=== PATIENT | male | born 1965 | race Two or more races ===

== ENCOUNTER → 2016-09-01 | Outpatient (CLI) | payer MEDICARE, SELFPAY ==
[2016-09-01 10:58] LABS: ALT 35 U/L (21-72); AST 23 U/L (17-59); Alkaline Phosphatase 107 U/L (38-126); Anion Gap 11 mmol/L; Blood Urea Nitrogen 11 mg/dL (9-20); Calcium 9.7 mg/dL (8.4-10.2); Carbon Dioxide 29 mmol/L (22-30); Chloride 100 mmol/L (98-107); Cholesterol 154 mg/dL (<200); Glucose 285 mg/dL (74-99); HDL Cholesterol 54 mg/dL (40-60); Non-African American GFR(MDRD) >60 (>60 ml/min/1.73 sqM); Potassium 4.6 mmol/L (3.5-5.1); Sodium 140 mmol/L (137-145); Total Bilirubin 0.6 mg/dL (0.2-1.3); Total Protein 8.1 g/dL (6.3-8.2); Triglycerides 136 mg/dL (<150)
== END ==
LOC: LABWHC1 09:45
PROVIDERS: ATTEND Internal Medicine Endocrinology, Diabetes & Metabolism
DX: E11.65 Type 2 diabetes mellitus with hyperglycemia (principal)
CPT/HCPCS: 36415; 80053; 80061; 82043

== ENCOUNTER → 2018-04-25 | Outpatient (CLI) | payer MEDICARE ==
--- NOTE | 2018-04-25 07:53 | MR ---
EXAMINATION TYPE: MR knee LT wo con DATE OF EXAM: 04/25/2018 COMPARISON: Bilateral knee x-ray February 24, 2014 HISTORY: S80.02XA / M25.562 - Contusion / Pain per order. Inner pain and swelling for one month after fall injury per patient. TECHNIQUE: Multiplanar, multisequence images of the knee is performed without IV contrast. FINDINGS: MEDIAL MENISCUS: Anterior and posterior horns are intact without tear. LATERAL MENISCUS: Anterior horn has globular increased signal extending to inferior articular surface , there is irregularity along anterior margin. Posterior horn is markedly truncated with abnormal sig nal, large cleft towards central body is noted. Marked lateral extrusion is seen on coronal images CRUCIATE LIGAMENTS: The posterior cruciate ligament is intact . Anterior cruciate ligament remains in tact with increased signal and thickening on sagittal image 16. COLLATERAL LIGAMENTS: The medial collateral ligament and lateral collateral ligament complex are inta ct and unremarkable. EXTENSOR MECHANISM: Visualized quadriceps and patellar tendons are intact. EFFUSION: There is small to moderate-sized suprapatellar joint effusion. POPLITEAL CYST: No popliteal/john cyst. TRICOMPARTMENT SPACES: Moderate tricompartment joint space loss is present with mild to moderate spur ring. CARTILAGE: Chondromalacia patella is seen with thinning of articular cartilage along posterior patell ar pole. There is thinning of articular cartilage medial and lateral tibiofemoral compartments. BONE MARROW SIGNAL: There is subchondral cystic change lateral tibiofemoral compartment coronal image 22. There is additional subchondral cystic change along the posterior patellar pole OTHER: No additional significant abnormality is appreciated. IMPRESSION: 1. Complex full-thickness meniscal tear involving anterior and worse involving the posterior posterio r horn of lateral meniscus. 2. Moderate to advanced tricompartment degenerative changes as detailed above. 3. Small to moderate size suprapatellar joint effusion. 4. Myxoid degeneration ACL.
== END | disposition home or self-care (01) ==
LOC: RADMRIMAIN 07:01
PROVIDERS: ATTEND Family Medicine
DX: S83.272A Complex tear of lateral meniscus, current injury, left knee, initial encounter (principal); M17.12 Unilateral primary osteoarthritis, left knee; M89.8X6 Other specified disorders of bone, lower leg

== ENCOUNTER → 2018-11-22 | Outpatient (CLI) | payer MEDICARE ==
[2018-11-22 11:13] LABS: HCT 39.9 % (39.0-53.0); HGB 13.4 gm/dL (13.0-17.5); MCH 29.7 pg (25.0-35.0); MCHC 33.7 g/dL (31.0-37.0); MCV 88.1 fL (80.0-100.0); Mean Platelet Volume 7.3; Platelet Count 236 k/uL (150-450); RBC 4.52 m/uL (4.30-5.90); RDW 13.9 % (11.5-15.5); WBC 5.8 k/uL (3.8-10.6)
[2018-11-22 11:28] LABS: INR 0.9 (<1.2); Prothrombin Time 9.7 sec (9.0-12.0)
[2018-11-22 11:29] LABS: ALT 28 U/L (21-72); AST 22 U/L (17-59); African American GFR (CKD) >90 (>60 ml/min/1.73 sqM); Albumin 4.4 g/dL (3.5-5.0); Alkaline Phosphatase 82 U/L (38-126); Anion Gap 11 mmol/L; Blood Urea Nitrogen 14 mg/dL (9-20); Calcium 9.7 mg/dL (8.4-10.2); Carbon Dioxide 27 mmol/L (22-30); Chloride 103 mmol/L (98-107); Cholesterol 166 mg/dL (<200); Glucose 188 mg/dL (74-99); HDL Cholesterol 63 mg/dL (40-60); LDL Cholesterol,Calculated 81 mg/dL (0-99); Magnesium 1.5 mg/dL (1.6-2.3); Phosphorus 4.2 mg/dL (2.5-4.5); Potassium 4.4 mmol/L (3.5-5.1); Sodium 141 mmol/L (137-145); Total Bilirubin 0.4 mg/dL (0.2-1.3); Total Protein 7.7 g/dL (6.3-8.2); Triglycerides 109 mg/dL (<150)
--- NOTE | 2018-11-22 12:31 | US ---
EXAMINATION TYPE: US gallbladder DATE OF EXAM: 11/22/2018 COMPARISON: Renal US CLINICAL HISTORY: K80.20 Gallstones. Patient c/o epigastric pain after meals, acid reflux, and para u mbilical pain since yesterday after heavy lifting; gastric bypass surgery 2017, umbilical hernia repa ir with mesh 2002 or 2003; diabetic, HT 6'1", WT 320lbs EXAM MEASUREMENTS: Liver Length: 14.5 cm Gallbladder Wall: 0.2 cm CBD: 0.3 cm Right Kidney: 13.87 x 6.5 x 6.4 cm US exam is technically limited by large body habitus. Pancreas: Unremarkable Liver: There is increased echogenicity of the hepatic parenchyma with diminished visualization of th e portal triads most commonly relating to hepatic steatosis and limiting evaluation for underlying he patic masses. Gallbladder: wnl Evidence for sonographic Wood's sign: no CBD: wnl Right Kidney: No hydronephrosis or masses seen, lobular mid cortex is noted Mid Abdomen at pain/mesh area: bowel is noted deep to the mesh from the prior hernia repair with sub cutaneous scarring noted. IMPRESSION: 1. Mesh appears grossly intact with scar tissue superficial to this and bowel deep to this. If there is palpable abnormality or persistent pain CT would be recommended with Valsalva. 2. Findings most commonly related to hepatic steatosis, correlate with liver function tests.
[2018-11-22 16:03] LABS: Parathyroid Hormone Intact 29.8 pg/mL (14.0-72.0)
[2018-11-22 17:05] LABS: Folate, Serum 5.7 ng/mL; Vitamin D 25 Hydroxy 21.2 ng/mL (30.0-100.0)
[2018-11-22 17:08] LABS: Iron Saturation 28.8 (15.00-50.00)
[2018-11-22 17:29] LABS: Hemoglobin A1C 8.4 % (4.0-6.0)
[2018-11-23 13:45] LABS: Vit B1(Thiamine) 60 ug/L (38-122)
[2018-11-23 15:20] LABS: Zinc, Serum 70 ug/dL (60-130)
== END | disposition home or self-care (01) ==
LOC: RADUSWWP 10:12
PROVIDERS: ATTEND Surgery Plastic and Reconstructive Surgery
DX: K80.20 Calculus of gallbladder without cholecystitis without obstruction (principal); E21.1 Secondary hyperparathyroidism, not elsewhere classified; D50.8 Other iron deficiency anemias; K90.89 Other intestinal malabsorption; E44.0 Moderate protein-calorie malnutrition; E55.9 Vitamin D deficiency, unspecified; K74.1 Hepatic sclerosis; N19 Unspecified kidney failure; K50.90 Crohn's disease, unspecified, without complications
CPT/HCPCS: 76705; 80053; 80061; 82306; 82525; 82607; 82728; 82746; 83036; 83540; 83550; 83735; 83970; 84100; 84134; 84255; 84425; 84443; 84590; 84630; 85027; 85610; 85730

== ENCOUNTER → 2018-11-27 | Outpatient (CLI) | payer MEDICARE ==
--- NOTE | 2018-11-27 11:20 | CT ---
EXAMINATION TYPE: CT abdomen w con DATE OF EXAM: 11/27/2018 COMPARISON: Gallbladder ultrasound 5 days ago. HISTORY: Umbilical pain, prior umbilical hernia repair CT DLP: 3804.7 mGycm, Automated Exposure Control for Dose Reduction was Utilized. CONTRAST: CT scan of the abdomen is performed with oral and with IV Contrast, patient injected with 100 mL of I sovue 300. FINDINGS: LUNG BASES: No significant abnormality is appreciated. LIVER/GB: Liver is diffusely low dense consistent with mild diffuse fatty infiltration. PANCREAS: No significant abnormality is seen. SPLEEN: No significant abnormality is seen. ADRENALS: No significant abnormality is seen. KIDNEYS: There is symmetric cortical medullary uptake and excretion from both kidneys without concern ing renal mass or hydronephrosis seen bilaterally. There are suspected two 2 mm upper pole right jonny l calculi or abnormal image 63 and single 3 mm calculus lower pole right kidney coronal image 50 BOWEL: Surgical sutures from gastric sleeve are seen. Oral contrast has not reached distal ileum. Nor mal-appearing appendix is seen from the cecum posteriorly. No suspicious small large bowel dilatation . LYMPH NODES: No greater than 1cm abdominal lymph nodes are appreciated. OSSEOUS STRUCTURES: Moderate multilevel spurring. OTHER: Anterior abdominal wall shows mild skin thickening and fat stranding bilaterally mid to lower abdominal levels. There is no recurrent hernia evident. IMPRESSION: No suspicious ventral or umbilical hernia.
== END | disposition home or self-care (01) ==
LOC: RADCTMAIN 09:32
PROVIDERS: ATTEND Family Medicine
DX: R10.9 Unspecified abdominal pain (principal)
CPT/HCPCS: 74160; Q9967

== ENCOUNTER 2018-12-12 05:57 | Day surgery (SDC) | payer MEDICARE ==
[2018-12-07 12:24] VITALS: BMI 44.9
[~2018-12-12 05:57] MED LIST: LACTATED RINGERS 1,000 ML IV SCH; LIDOCAINE 1% 20 ML VIAL (10MG/ML) FOR IV START INTRADERMA PRN
[2018-12-12] MEDS ORDERED: LACTATED RINGERS 1,000 ML IV ONE (06:37)
[2018-12-12 06:47] VITALS: TEMP 98.4
[2018-12-12 06:51] LABS: Glucose,Whole Blood 111 mg/dL (75-99)
[2018-12-12] MEDS ORDERED: LIDOCAINE 1% INJ 10MG/ML (20 ML MDV) ONE (07:04)
[2018-12-12] MEDS ORDERED: PROPOFOL 10 MG/ML 20 ML VIAL IV ONE (07:04)
--- NOTE | 2018-12-12 07:11 | P.GSHP ---
History of Present Illness H&P Date: 12/12/18 CHIEF COMPLAINT: GERD HISTORY OF PRESENT ILLNESS: The patient is a 53-year-old male who presents reports gastroesophageal reflux disease. Upper endoscopy was offered for further evaluation and management. PAST MEDICAL HISTORY: Please see list. PAST SURGICAL HISTORY: Please see list. MEDICATIONS: Please see list. ALLERGIES: Please see list. SOCIAL HISTORY: No illicit drug use FAMILY HISTORY: No reports of Crohn disease or ulcerative colitis. REVIEW OF ORGAN SYSTEMS: CONSTITUTIONAL: No reports of fevers or chills. GI: Denies any blood in stools or constipation. PHYSICAL EXAM: VITAL SIGNS: Stable GENERAL: Well-developed and pleasant in no acute distress. HEENT: No scleral icterus. Extraocular movements grossly intact. Moist buccal mucosa. NECK: Supple without lymphadenopathy. CHEST: Unlabored respirations. Equal bilateral excursions. CARDIOVASCULAR: Regular rate and rhythm. Distal 2+ pulses. ABDOMEN: Soft, nondistended. MUSCULOSKELETAL: No clubbing, cyanosis, or edema. ASSESSMENT: 1. Gastroesophageal reflux disease PLAN: 1. Recommend proceeding with an upper endoscopy Past Medical History Past Medical History: Diabetes Mellitus, GERD/Reflux, Hypertension, Musculoskeletal Disorder, Osteoarthritis (OA), Sleep Apnea/CPAP/BIPAP Additional Past Medical History / Comment(s): neuropathy legs, hands feet & back., herniated lumbar discs, history of multiple bone fractures, Hx of sleep apnea- resolved with wt loss, , swelling lower legs, RLS, uses cane. Arthritis knees. History of Any Multi-Drug Resistant Organisms: None Reported Past Surgical History: Bariatric Surgery, Hernia Repair, Orthopedic Surgery Additional Past Surgical History / Comment(s): umbilical hernia repair w/mesh, right carpal tunnel repair, arthroscopy R knee, sleeve gastrectomy 11/30/15 Past Anesthesia/Blood Transfusion Reactions: No Reported Reaction Past Psychological History: No Psychological Hx Reported Smoking Status: Never smoker Past Alcohol Use History: Occasional Past Drug Use History: None Reported - Past Family History Father Additional Family Medical History / Comment(s): Heart problems Mother Family Medical History: Diabetes Mellitus Additional Family Medical History / Comment(s): from foot infection Medications and Allergies Home Medications Medication Instructions Recorded Confirmed Type Insulin NPH [humuLIN N] 50 units SQ BID-W/MEALS 08/13/15 12/12/18 History Insulin Regular [humuLIN R] 1 dose SQ ACHS PRN 08/28/15 12/12/18 History Losartan Potassium 25 mg PO DAILY 04/21/16 12/12/18 History HYDROcodone/APAP 10-325MG [[place] 1 tab PO DIRECTED PRN 12/07/18 12/12/18 History 10-325] Metformin (Unknown Dose) 2,000 tab PO DAILY 12/07/18 12/12/18 History Testosterone Booster 1 dose PO DAILY 12/07/18 History Allergies Allergy/AdvReac Type Severity Reaction Status Date / Time hydrocodone bitartrate AdvReac Rash/Hives Verified 12/12/18 06:49 [From Lortab] Surgical - Exam Vital Signs Pulse Resp BP Pulse Ox 93 14 143/78 94 L 12/12/18 06:44 12/12/18 06:44 12/12/18 06:44 12/12/18 06:44 Results - Labs Abnormal Lab Results - Last 24 Hours (Table) 12/12/18 Range/Units 06:47 POC Glucose (mg/dL) 111 H (75-99) mg/dL
--- NOTE | 2018-12-12 07:22 | P.PCN ---
Date of Procedure: 12/12/18 Description of Procedure: PREOPERATIVE DIAGNOSIS: Gastroesophageal reflux disease. Morbid obesity. POSTOPERATIVE DIAGNOSIS: Morbid obesity. Erosive esophagitis with ulceration Gastroesophageal reflux disease. Diaphragmatic hiatal hernia History of sleeve gastrectomy OPERATION: Esophagogastroduodenoscopy with biopsies along antrum and distal esophagus SURGEON: Magalis Holguin MD ANESTHESIA: MAC. INDICATIONS: The patient is a 53-year-old male who presents with a history of reflux disease. Benefits and risks of the procedure were described. Informed consent was obtained. DESCRIPTION: The patient was brought into the endoscopy suite and laid in the left lateral decubitus position. An Olympus gastroscope was passed along the posterior oropharynx down to the distal esophagus where the squamocolumnar junction was encountered at 38 cm from the incisors. The stomach was entered and no bile refl ux was found. Evidence of sleeve gastrectomy was confirmed without dilation of sleeve or corkscrewing of his sleeve gastrectomy. Additional findings are listed below. Biopsies with cold forceps were obtained of the antrum and distal esophagus. The first through third portion of the duodenum was examined and unremarkable. Retroflexion of the scope was limited by sleeve gastrectomy of appropriate caliber. The squamocolumnar junction demonstrated LA grade C erosive esophagitis. The stomach was desufflated. The patient tolerated the procedure well. FINDINGS: Squamocolumnar junction 38 cm from the incisors. Diaphragmatic hiatus at 42 cm. Hiatal hernia, 4 cm Sleeve gastrectomy of appropriate caliber without portion, course scarring, or dilatation. LA grade C erosive esophagitis with biopsies obtained along the antrum No active duodenitis. Chronic gastritis RECOMMENDATIONS: Upper endoscopy as needed. Start proton pump inhibitor 4 weeks. Plan - Discharge Summary New Discharge Prescriptions: New Omeprazole 40 mg PO DAILY #90 capsule.dr Nascimento Action Insulin NPH [humuLIN N] 50 units SQ BID-W/MEALS Insulin Regular [humuLIN R] 1 dose SQ ACHS PRN PRN Reason: sliding scale Losartan Potassium 25 mg PO DAILY HYDROcodone/APAP 10-325MG [[place] 10-325] 1 tab PO DIRECTED PRN PRN Reason: Pain Testosterone Booster 1 dose PO DAILY Metformin (Unknown Dose) 2,000 tab PO DAILY Discharge Medication List Insulin NPH [humuLIN N] 50 units SQ BID-W/MEALS 08/13/15 [History] Insulin Regular [humuLIN R] 1 dose SQ ACHS PRN 08/28/15 [History] Losartan Potassium 25 mg PO DAILY 04/21/16 [History] HYDROcodone/APAP 10-325MG [[place] 10-325] 1 tab PO DIRECTED PRN 12/07/18 [History] Metformin (Unknown Dose) 2,000 tab PO DAILY 12/07/18 [History] Testosterone Booster 1 dose PO DAILY 12/07/18 [History] Omeprazole 40 mg PO DAILY #90 capsule. 12/12/18 [Rx] Follow up Appointment(s)/Referral(s): [facility],. [NON-STAFF] - 12/26/18 Patient Instructions/Handouts: Gastroesophageal Reflux Disease (DC), Hiatal Hernia (DC) Discharge Disposition: HOME SELF-CARE
[2018-12-12 07:38] VITALS: BP 126/67; PULSE 70; RESP 16
[2018-12-12 07:43] LABS: Glucose,Whole Blood 108 mg/dL (75-99)
== END 2018-12-12 08:06 | disposition home or self-care (01) ==
LOC: ORWHC2ENDO 05:57
PROVIDERS: ATTEND Surgery Plastic and Reconstructive Surgery
DX: K21.0 Gastro-esophageal reflux disease with esophagitis (principal); K22.10 Ulcer of esophagus without bleeding; K29.50 Unspecified chronic gastritis without bleeding; K44.9 Diaphragmatic hernia without obstruction or gangrene; Z98.84 Bariatric surgery status; I25.10 Atherosclerotic heart disease of native coronary artery without angina pectoris; I10 Essential (primary) hypertension; E11.42 Type 2 diabetes mellitus with diabetic polyneuropathy; M51.26 Other intervertebral disc displacement, lumbar region; M17.0 Bilateral primary osteoarthritis of knee; G25.81 Restless legs syndrome; E66.01 Morbid (severe) obesity due to excess calories; Z68.41 Body mass index [BMI] 40.0-44.9, adult; Z79.890 Hormone replacement therapy; Z79.4 Long term (current) use of insulin; Z79.891 Long term (current) use of opiate analgesic; Z79.899 Other long term (current) drug therapy; Z88.5 Allergy status to narcotic agent; Z87.81 Personal history of (healed) traumatic fracture; Z83.3 Family history of diabetes mellitus; Z82.49 Family history of ischemic heart disease and other diseases of the circulatory system
CPT/HCPCS: 43239; 88305; 88312; J2001; J2704

== ENCOUNTER → 2019-01-04 | Outpatient (CLI) | payer MEDICARE ==
--- NOTE | 2019-01-04 15:57 | FL ---
EXAMINATION TYPE: FL barium swallow DATE OF EXAM: 01/04/2019 COMPARISON: None HISTORY: Hiatal hernia reflux TECHNIQUE: 42 seconds of fluoroscopy time was provided for the procedure 16 images were obtained. Esophagus dilates to normal caliber has normal contour to the gastroesophageal junction. Gastroesopha geal junction opens to normal caliber. On the overhead radiographs a small hiatal hernia appears to b e present. Swallowing images of the esophagus appear unremarkable. No intraluminal or extramural defect is evide nt. IMPRESSIONS: 1. Suggestion of a small hiatal hernia.
== END | disposition home or self-care (01) ==
LOC: RADUSWWP 09:52
PROVIDERS: ATTEND Surgery Plastic and Reconstructive Surgery
DX: K44.9 Diaphragmatic hernia without obstruction or gangrene (principal); Z88.8 Allergy status to other drugs, medicaments and biological substances
CPT/HCPCS: 74220

== ENCOUNTER → 2019-09-25 | Outpatient (CLI) | payer MEDICARE ==
[2019-09-25 11:07] LABS: Basophils % (A) 0 %; Eosinophils # (A) 0.1 k/uL (0-0.7); Eosinophils % (A) 2 %; HCT 38.8 % (39.0-53.0); HGB 12.7 gm/dL (13.0-17.5); Lymphocytes # (A) 1.9 k/uL (1.0-4.8); Lymphocytes % (A) 23 %; MCH 29.8 pg (25.0-35.0); MCHC 32.7 g/dL (31.0-37.0); MCV 91.3 fL (80.0-100.0); Mean Platelet Volume 7.3; Monocytes # (A) 0.4 k/uL (0-1.0); Monocytes % (A) 4 %; Neutrophils # (A) 5.8 k/uL (1.3-7.7); Neutrophils % (A) 69 %; Platelet Count 362 k/uL (150-450); RBC 4.25 m/uL (4.30-5.90); RDW 13.5 % (11.5-15.5); WBC 8.5 k/uL (3.8-10.6)
[2019-09-25 16:19] LABS: African American GFR (CKD) 125.8 (60.0-200.0); Albumin 4.1 g/dL (3.80-4.90); Albumin/Globulin Ratio 1.32 (1.60-3.17); Anion Gap 11.4 mmol/L (4.00-12.00); Calcium 9.2 mg/dL (8.7-10.3); Carbon Dioxide 27.6 mmol/L (21.6-31.8); Globulin 3.1 g/dL (1.6-3.3); Non-African American GFR(CKD) 108.5 (60.0-200.0); Potassium 4.1 mmol/L (3.5-5.5); Total Bilirubin 0.4 mg/dL (0.2-1.2); Total Protein 7.2 g/dL (6.2-8.2)
== END | disposition home or self-care (01) ==
LOC: LABWHC1 10:20
PROVIDERS: ATTEND Family Medicine
DX: N30.01 Acute cystitis with hematuria (principal); R10.816 Epigastric abdominal tenderness
CPT/HCPCS: 36415; 80053; 82150; 83690; 85025; 87635

== ENCOUNTER → 2019-10-03 | Outpatient (CLI) | payer MEDICARE ==
--- NOTE | 2019-10-03 12:46 | CT ---
EXAMINATION TYPE: CT abdomen pelvis wo con DATE OF EXAM: 10/03/2019 COMPARISON: 11/27/2018 HISTORY: Upper Abdominal pain. CT DLP: 3219.9 mGycm Examination of the solid and hollow viscera is limited given the lack of contrast. FINDINGS: LUNG BASES: No evidence for nodule. No evidence for infiltrate. LIVER/GB: The gallbladder is unremarkable. No space-occupying hepatic lesion. PANCREAS: No pancreatic mass identified. No inflammatory process seen. SPLEEN: No evidence for splenomegaly. No intrasplenic lesions seen. ADRENALS: No adrenal nodules identified. No evidence for thickening. KIDNEYS: Nonobstructing 3 mm calculus upper pole right kidney. Nonobstructing 3 mm calculus mid pole left kidney. No distinct renal masses are appreciated. The urinary bladder is incompletely distended. Urinary bladder wall may be slightly thickened. Correlate clinically. BOWEL: Appendix has a normal appearance. No evidence of bowel obstruction. No inflammatory process. G astric sleeve changes noted. Lymph nodes: No evidence for adenopathy greater than 1 cm. Abdominal aorta: Atheromatous changes seen. No evidence for aneurysm. Genital organs: No significant abnormality. Other: No significant abnormality. IMPRESSION: 1. Nonobstructing nephrolithiasis seen bilaterally. 2. Correlate for cystitis.
== END | disposition home or self-care (01) ==
LOC: RADCTMAIN 11:45
PROVIDERS: ATTEND Family Medicine
DX: N20.0 Calculus of kidney (principal); N39.0 Urinary tract infection, site not specified
CPT/HCPCS: 74176

== ENCOUNTER → 2020-07-07 | Outpatient (CLI) | payer MEDICARE ==
--- NOTE | 2020-07-07 12:09 | P.SLEEP ---
History of Present Illness H&P Date: 07/07/20 this is a 54-year-old morbidly obese male patient who is coming in for sleep apnea evaluation. The patient was diagnosed having obstructive sleep apnea during his stay in [place] as the patient lived in the [facility] for a total of 10 years. Is currently back in [place]. Note that he is morbidly obese. He is currently weighing around tear and 81 pounds. He has undergone gastric bypass surgery for lung which she lost around 80 pounds. He regained some of the weight backand is up by another 40 pounds. Since he gained the weight back, his symptoms of sleep apnea became more active. Currently doesn't have a CPAP machine and he wanted to establish himself through our sleep center. He has loud snoring, witnessed apneas, excessive fatigue and sleepiness during the day and he wakes up with a dry mouth. He is having excessive numbness and tingling and restless and lower extremity and obviously the patient has symptoms of peripheral neuropathy related to his diabetes mellitus and takes Glen for pain control. He falls asleep during the day and he is very much worried about his sleep. He has problems with memory and concentration and irritability. He goes to bed around 9 PM, wakes up at 2 AM and he averages around 4-5 hours of sleep. No anxiety. No depression. No grinding of his teeth. His current [place] [employer] score is at 9. He sleeps on his side and he watches television in his bedroom. He wakes up multiple times in the middle of the night for restlessness and lower extremities at times pain in his legs and other times for no obvious reasons. No history of any motor vehicle accident because of feeling drowsy or sleepy. He has chronic back pain. He is currently disabled. He is a arc welder by profession. His comorbidities include diabetes mellitus, acid reflux, hypertension. He also has morbid obesity and obstructive sleep apnea as mentioned. Review of Systems Constitutional: Reports daytime sleepiness, Reports fatigue, Reports weight gain (the patient has gained around 10 pounds during this ongoing pandemic) Eyes: denies as per HPI, denies blurred vision, denies bulging eye, denies decreased vision, denies diplopia, denies discharge, denies dry eye, denies irritation, denies itching, denies pain, denies photophobia, denies loss of peripheral vision, denies loss of vision, denies tunnel vision/blind spots Ears, nose, mouth and throat: Reports as per HPI Breasts: absent: as per HPI, gynecomastia Cardiovascular: Denies chest pain, Denies shortness of breath Respiratory: Reports as per HPI, Reports dyspnea, Reports sleep apnea, Reports snoring Gastrointestinal: Reports as per HPI Genitourinary: Reports as per HPI Musculoskeletal: Reports low back pain, Reports muscle weakness Musculoskeletal: absent: ankle pain, ankle stiffness, ankle swelling Integumentary: Reports as per HPI Neurological: Reports numbness, Reports paresthesias Psychiatric: Reports as per HPI Endocrine: Reports as per HPI, Reports fatigue, Reports increase in ring/shoe/hat size Allergic/Immunologic: Reports as per HPI Past Medical History Past Medical History: Diabetes Mellitus, GERD/Reflux, Hypertension, Musculoskeletal Disorder, Sleep Apnea/CPAP/BIPAP Additional Past Medical History / Comment(s): neuropathy bilateral lower legs and hands, herniated lumbar discs, history of multiple bone fractures, uses CPAP, swelling lower legs, restless leg History of Any Multi-Drug Resistant Organisms: None Reported Past Surgical History: Bariatric Surgery, Hernia Repair, Orthopedic Surgery Additional Past Surgical History / Comment(s): umbilical hernia repair w/mesh, right carpal tunnel repair, arthroscopy R knee, sleeve gastrectomy 11/30/15 Past Anesthesia/Blood Transfusion Reactions: No Reported Reaction Past Alcohol Use History: Rare - Past Family History Father Additional Family Medical History / Comment(s): Heart problems Mother Family Medical History: Diabetes Mellitus Additional Family Medical History / Comment(s): from foot infection Medications and Allergies Home Medications Medication Instructions Recorded Confirmed Type Insulin NPH [humuLIN N] 50 units SQ BID-W/MEALS 08/13/15 12/12/18 History Insulin Regular [humuLIN R] 1 dose SQ ACHS PRN 08/28/15 12/12/18 History Losartan Potassium 25 mg PO DAILY 04/21/16 12/12/18 History HYDROcodone/APAP 10-325MG [[place] 1 tab PO DIRECTED PRN 12/07/18 12/12/18 History 10-325] Metformin (Unknown Dose) 2,000 tab PO DAILY 12/07/18 12/12/18 History Testosterone Booster 1 dose PO DAILY 12/07/18 History Omeprazole 40 mg PO DAILY #90 capsule. 12/12/18 Rx Allergies Allergy/AdvReac Type Severity Reaction Status Date / Time hydrocodone bitartrate AdvReac Rash/Hives Verified 12/12/18 06:49 [From Lortab] Physical Exam The patient appeared well nourished and normally developed. Vital signs as documented. the patient is morbidly obese and the patient has a Mallampati class IVHead exam is unremarkable. No scleral icterus or corneal arcus noted. Neck is without jugular venous distension, thyromegaly, or carotid bruits. Carotid upstrokes are brisk bilaterally. Lungs are clear to auscultation and percussion. Cardiac exam reveals the PMI to be normally sized and situated. Rhythm is regular. First and second heart sounds normal. No murmurs, rubs or gallops. Abdo melissa exam reveals normal bowel sounds, no masses, no organomegaly and no aortic enlargement. Extremities are nonedematous and both femoral and pedal pulses are normal.Examination of the skin revealed no evidence of significant rashes, suspicious appearing nevi or other concerning lesions.Neurologically, the patient is awake and alert and the patient does not have any focal neurological deficit. Cranial nerves are essentially intact. Assessment and Plan Plan: 1. obstructive sleep apnea. The patient has a diagnosis of obstructive sleep apnea any years back and the patient is currently not receiving any treatment and his coming into the sleep center to establish himself for further evaluation and treatment of his TRAVIS. He is morbidly obese and he has a BMI of 51.6. His current upper scores of 9. His clinical manifestations symptoms are typical of obstructive sleep apnea and the patient will be further investigated and treated accordingly. He is not aware of his previous AHI score. He thinks that he was being treated with a CPAP pressure of 16 cm of water with a full facemask. 2 morbid obesity with previous bariatric surgery/gastric bypass and subsequent weight loss current BMI 51.6 3 diabetes mellitus 4 diabetic peripheral neuropathy 5 restlessness and lower extremities related to diabetes and diabetic peripheral neuropathy 6 acid reflux plan Encourage weight loss Extensive deep hours an average of 6-7 hours of sleep at night if possible. The patient may have an underlying insufficient sleep syndrome Proceed with a screening polysomnogram to evaluate this patient for obstructive sleep apnea and severity and the same time look for any sleep fragmentation related to periodic limb movement activity/restless leg/peripheral neuropathy. Continue Glen for chronic back pain and neuropathic pain in his lower extremities improve sleep hygiene measures [place] control of cardiovascular risk factors we'll continue to follow make further recommendations once the sleep study is conducted. Sleep Note - Sleep Note Sleep Note: Temperature: Pulse Rate: Respiratory Rate: Blood Pressure: SpO2: Height: Weight: BMI: Neck Circumference:
== END | disposition home or self-care (01) ==
LOC: SLEEP 11:29
PROVIDERS: ATTEND Internal Medicine Critical Care Medicine
DX: G47.33 Obstructive sleep apnea (adult) (pediatric) (principal); E66.01 Morbid (severe) obesity due to excess calories; E11.42 Type 2 diabetes mellitus with diabetic polyneuropathy; K21.9 Gastro-esophageal reflux disease without esophagitis; Z79.84 Long term (current) use of oral hypoglycemic drugs; Z79.899 Other long term (current) drug therapy; Z79.4 Long term (current) use of insulin; Z88.5 Allergy status to narcotic agent; Z99.89 Dependence on other enabling machines and devices; Z68.43 Body mass index [BMI] 50.0-59.9, adult
CPT/HCPCS: 99211

== ENCOUNTER 2020-12-17 14:00 | Outpatient (CLI) | payer MEDICARE | END 2020-12-17 16:00 | disposition home or self-care (01) | LOC: SLEEP 14:00 | PROVIDERS: ATTEND Internal Medicine | DX: Z53.9 Procedure and treatment not carried out, unspecified reason (principal) ==

== ENCOUNTER → 2021-06-16 | Outpatient (CLI) | payer MEDICARE ==
--- NOTE | 2021-06-16 16:40 | SFUN ---
SLEEP CENTER FOLLOW UP NOTE DATE OF SERVICE: 06/16/2021. 55-year-old gentleman has been followed in Sleep Center for treatment of obstructive sleep apnea-hypopnea syndrome. Patient continued to use his CPAP equipment. Sleeps well with the machine. No snoring, getting his supplies in time asking for possibly prescription for portable machine because he is driving a lot. [place] Sleepiness Scale today since he is 6, which is normal. I checked his CPAP unit. Range of the pressure 5-20 average pressure 11.7, usage is 23/30 nights and 18/30 nights more than 4 hours. Leak is 2 L/minute which is very minimal. Apnea-hypopnea index is 4.7, which is normal. CURRENT MEDICATIONS: Insulin. The patient did not bring list of his medication. Following previous visit, it was losartan, metformin, hydrocodone, testosterone, omeprazole. PHYSICAL EXAMINATION: GENERAL: Patient in no distress. BP 165/97, HR 98, RR 18, weight 399.4. Patient increased his weight about 17 pounds compared with the previous visit. Temperature 96.9, oxygen saturation at room air 95%. Extremely low position of soft palate, Mallampati 4. NECK: Supple, no JVD. Thyroid is not palpable. LUNGS: Clear to percussion and to auscultation. Good air exchange. No wheezing or rhonchi. HEART: S1, S2 regular. No murmurs, gallops, or rubs. ABDOMEN: Obese. Soft and nontender. Bowel sounds are present. No organomegaly appreciated. EXTREMITIES: No clubbing or cyanosis. WINDOW CLEANER: Awake, alert, and oriented X3. Cranial nerves 2 to 7 intact. There is no fasciculation or atrophy. noted. No focal deficits observed. IMPRESSION: 1. Extremely severe obstructive sleep apnea-hypopnea syndrome. Original apnea- hypopnea index 81.9 with extremely severe oxygen desaturation to 39.9%, normal respiration on CPAP. 2. Obesity. 3. Diabetes mellitus. 4. Status post bariatric surgery. 5. History of peripheral diabetic neuropathy. 6. Acid reflux. 7. Back pain. 8. Hypertension. PLAN: 1. I wrote the patient prescription for portable CPAP unit. 2. I will change style of his nasal pillows from AirFit to Bravo FX, large because an AirFit nasal pillow mask goes out of his head and head gear. They were not adjustable. 3. Patient will continue to use PAP equipment every night for the whole night. 4. Sleep hygiene with regular time in bed for at least 7-1/2 to 8 hours. 5. Precautions related to driving. No driving if feeling sleepiness. 6. I will maintain all necessary prescription for PAP supplies including mask, tube, filters. 7. Watching weight. 8. Follow-up visit in 6 months or earlier if patient has any problems. Thank you very much for allowing me to participate in management of your patient. Sincerely, Raciel Gross MD, PhD, FAASM Diplomat of [employer] Sleep Medicine [employer] of [employer] [facility] [place] MMODL / IJN: [id number] /
== END ==
LOC: SLEEP 14:44
PROVIDERS: ATTEND Internal Medicine
DX: G47.33 Obstructive sleep apnea (adult) (pediatric) (principal); E66.9 Obesity, unspecified; E11.9 Type 2 diabetes mellitus without complications; E11.42 Type 2 diabetes mellitus with diabetic polyneuropathy; K21.9 Gastro-esophageal reflux disease without esophagitis; M54.9 Dorsalgia, unspecified; I10 Essential (primary) hypertension; Z98.84 Bariatric surgery status; Z79.4 Long term (current) use of insulin; Z79.84 Long term (current) use of oral hypoglycemic drugs; Z79.899 Other long term (current) drug therapy; Z99.89 Dependence on other enabling machines and devices; Z88.5 Allergy status to narcotic agent

== ENCOUNTER 2022-02-21 08:54 | Day surgery (SDC) | payer MEDICARE ==
[~2022-02-21 08:54] MED LIST changes: +LIDOCAINE 1% (10MG/ML) FOR IV START INTRADERMA PRN; -LIDOCAINE 1% 20 ML VIAL (10MG/ML) FOR IV START INTRADERMA PRN
[2022-02-21 09:20] VITALS: RESP 16; TEMP 97.7
[2022-02-21 09:26] LABS: Glucose,Whole Blood 201 mg/dL (70-110)
[2022-02-21] MEDS ORDERED: LACTATED RINGERS 1,000 ML IV ONE (09:30)
[2022-02-21] MEDS ORDERED: PROPOFOL 10 MG/ML 20 ML VIAL IV ONE (10:31)
--- NOTE | 2022-02-21 10:36 | P.GSHP ---
History of Present Illness H&P Date: 02/21/22 Chief Complaint: Positive colon guard test This a 56-year-old male presents today for screening colonoscopy. Patient has never had a colonoscopy before. Patient recent positive colon guard test Past Medical History Past Medical History: Diabetes Mellitus, GERD/Reflux, Hypertension, Musculoskeletal Disorder, Sleep Apnea/CPAP/BIPAP Additional Past Medical History / Comment(s): neuropathy bilateral lower legs and hands, herniated lumbar discs, history of multiple bone fractures, uses CPAP, occasional swelling lower legs, restless leg, positive cologard History of Any Multi-Drug Resistant Organisms: None Reported Past Surgical History: Bariatric Surgery, Hernia Repair, Orthopedic Surgery Additional Past Surgical History / Comment(s): umbilical hernia repair w/mesh, right carpal tunnel repair, arthroscopy R knee, sleeve gastrectomy 11/30/15 Past Anesthesia/Blood Transfusion Reactions: No Reported Reaction Smoking Status: Never smoker - Past Family History Father Additional Family Medical History / Comment(s): Heart problems Mother Family Medical History: Diabetes Mellitus Additional Family Medical History / Comment(s): from foot infection Medications and Allergies Home Medications Medication Instructions Recorded Confirmed Type Insulin NPH [humuLIN N] 61 units SQ BID-W/MEALS 08/13/15 02/21/22 History Insulin Regular [humuLIN R] See Protocol SQ ACHS PRN 08/28/15 02/21/22 History HYDROcodone/APAP 10-325MG [[place] 1 tab PO DIRECTED PRN 12/07/18 02/21/22 History 10-325] Omeprazole 40 mg PO DAILY #90 capsule. 12/12/18 02/21/22 Rx Losartan Potassium [Cozaar] 25 mg PO BID 02/17/22 02/21/22 History Semaglutide [Ozempic] 1 mg SQ WE 02/17/22 02/21/22 History Allergies Allergy/AdvReac Type Severity Reaction Status Date / Time No Known Allergies Allergy Verified 02/21/22 09:14 Surgical - Exam Vital Signs Temp Pulse Resp BP Pulse Ox 97.7 F 90 16 185/81 97 02/21/22 09:15 02/21/22 09:15 02/21/22 09:15 02/21/22 09:15 02/21/22 09:15 - General well developed, well nourished, no distress - Eyes PERRL - ENT normal pinna - Neck no masses - Respiratory normal expansion - Cardiovascular Rhythm: regular - Abdomen Abdomen: soft, non tender Results - Labs Abnormal Lab Results - Last 24 Hours (Table) 02/21/22 Range/Units 09:25 POC Glucose (mg/dL) 201 H (70-110) mg/dL Assessment and Plan Assessment: Positive colon guard test. We'll perform screening colonoscopy
--- NOTE | 2022-02-21 10:58 | P.OP ---
Date of Procedure: 02/21/22 Preoperative Diagnosis: Screening colonoscopy Positive colon guard test Postoperative Diagnosis: Multiple colonic polyps Procedure(s) Performed: Colonoscopy Anesthesia: MAC Surgeon: Yovanny Diaz Pathology: other (Colon polyps) Condition: stable Disposition: PACU Description of Procedure: The patient's placed on the endoscopy table in the lateral position. He received IV sedation. Digital rectal exam performed which revealed no ebonized. The flexible colonoscope was then placed patient anus. And passed throughout the entire colon. The ileocecal valve was visualized. In the right colon there was a polyp seen in the proximal portions removed with the forcep. In the distal right colon another polyp was seen removed with snare. Scope was brought back the transverse colon appeared normal. In the descending colon another polyp was removed the snare. Scope was brought back further and there was a few scattered diverticula. The rectum was normal. Scope withdrawn for patient.
[2022-02-21 11:17] LABS: Glucose,Whole Blood 152 mg/dL (70-110)
[2022-02-21 11:20] VITALS: BP 164/84; PULSE 81
== END 2022-02-21 12:05 | disposition home or self-care (01) ==
LOC: ORWHC2ENDO 08:54
PROVIDERS: ATTEND Surgery
DX: Z12.11 Encounter for screening for malignant neoplasm of colon (principal); D12.4 Benign neoplasm of descending colon; D12.3 Benign neoplasm of transverse colon; K57.32 Diverticulitis of large intestine without perforation or abscess without bleeding; E11.9 Type 2 diabetes mellitus without complications; I10 Essential (primary) hypertension; G47.33 Obstructive sleep apnea (adult) (pediatric); Z87.39 Personal history of other diseases of the musculoskeletal system and connective tissue; Z87.81 Personal history of (healed) traumatic fracture; Z90.49 Acquired absence of other specified parts of digestive tract; Z98.84 Bariatric surgery status; Z83.3 Family history of diabetes mellitus; Z79.4 Long term (current) use of insulin; Z79.899 Other long term (current) drug therapy
CPT/HCPCS: 88305; 45380; 45385; J2704

== ENCOUNTER 2022-11-06 10:05 | Emergency (ER) | payer MEDICARE ==
--- NOTE | 2022-11-06 10:36 | ED ---
Lower Extremity Injury HPI - General Chief Complaint: Extremity Injury, Lower Stated Complaint: Left foot injury Time Seen by Provider: 11/06/22 10:24 Source: patient, RN notes reviewed Mode of arrival: ambulatory Limitations: no limitations - History of Present Illness Initial Comments: 56-year-old male presents emergency Department chief complaint left foot pain. Patient states that he dropped a large log onto his foot yesterday. Patient states he woke up today with increasing discomfort, swelling and ecchymosis. Patient states she is diabetic and is concerned about his foot. He has no open lesions or sores. No other injuries noted. - Related Data Home Medications Medication Instructions Recorded Confirmed Insulin NPH [humuLIN N] 61 units SQ BID-W/MEALS 08/13/15 02/21/22 Insulin Regular [humuLIN R] See Protocol SQ ACHS PRN 08/28/15 02/21/22 HYDROcodone/APAP 10-325MG [[place] 1 tab PO DIRECTED PRN 12/07/18 02/21/22 10-325] Losartan Potassium [Cozaar] 25 mg PO BID 02/17/22 02/21/22 Semaglutide [Ozempic] 1 mg SQ WE 02/17/22 02/21/22 Previous Rx's Medication Instructions Recorded Omeprazole 40 mg PO DAILY #90 capsule. 12/12/18 Allergies Allergy/AdvReac Type Severity Reaction Status Date / Time No Known Allergies Allergy Verified 11/06/22 10:22 Review of Systems ROS Statement: Those systems with pertinent positive or pertinent negative responses have been documented in the HPI. ROS Other: All systems not noted in ROS Statement are negative. Past Medical History Past Medical History: Diabetes Mellitus, GERD/Reflux, Hypertension, Musculoskeletal Disorder, Sleep Apnea/CPAP/BIPAP Additional Past Medical History / Comment(s): neuropathy bilateral lower legs and hands, herniated lumbar discs, history of multiple bone fractures, uses CPAP, occasional swelling lower legs, restless leg, positive cologard History of Any Multi-Drug Resistant Organisms: None Reported Past Surgical History: Bariatric Surgery, Hernia Repair, Orthopedic Surgery Additional Past Surgical History / Comment(s): umbilical hernia repair w/mesh, right carpal tunnel repair, arthroscopy R knee, sleeve gastrectomy 11/30/15 Past Anesthesia/Blood Transfusion Reactions: No Reported Reaction Past Psychological History: No Psychological Hx Reported Smoking Status: Never smoker Past Alcohol Use History: None Reported Past Drug Use History: Marijuana - Past Family History Father Additional Family Medical History / Comment(s): Heart problems Mother Family Medical History: Diabetes Mellitus Additional Family Medical History / Comment(s): from foot infection General Exam Limitations: no limitations General appearance: alert, in no apparent distress Head exam: Present: atraumatic, normocephalic, normal inspection Respiratory exam: Present: normal lung sounds bilaterally. Absent: respiratory distress, wheezes, rales, rhonchi, stridor Cardiovascular Exam: Present: regular rate, normal rhythm, normal heart sounds. Absent: systolic murmur, diastolic murmur, rubs, gallop, clicks Extremities exam: Present: other (Left foot there is ecchymosis the mid to distal foot primarily towards third fourth and fifth digit there is some ecchymosis of the fourth digit no open lesions or sores.) Course Vital Signs 11/06/22 10:17 Temperature 97.7 F Pulse Rate 72 Respiratory 18 Rate Blood Pressure 168/90 O2 Sat by Pulse 98 Oximetry Medical Decision Making - Medical Decision Making Was pt. sent in by a medical professional or institution (, PA, CLINICAL PROGRAMMER, urgent care, hospital, or half-way...) When possible be specific @ -No Did you speak to anyone other than the patient for history (EMS, parent, family, police, friend...)? What history was obtained from this source @ -No Did you review nursing and triage notes (agree or disagree)? Why? @ -I reviewed and agree with nursing and triage notes Were old charts reviewed (outside hosp., previous admission, EMS record, old EKG, old radiological studies, urgent care reports/EKG's, half-way records)? Report findings @ -No old charts were reviewed Differential Diagnosis (chest pain, altered mental status, abdominal pain women, abdominal pain men, vaginal bleeding, weakness, fever, dyspnea, syncope, headache, dizziness, GI bleed, back pain, seizure, CVA, palpatations, mental health, musculoskeletal)? @ -Foot contusion, foot fracture, foot sprain, hematoma EKG interpreted by me (3pts min.). @ -None X-rays interpreted by me (1pt min.). @ -X-ray left foot shows no acute fracture dislocation CT interpreted by me (1pt min.). @ -None done U/S interpreted by me (1pt. min.). @ -None done What testing was considered but not performed or refused? (CT, X-rays, U/S, labs)? Why? @ -None What meds were considered but not given or refused? Why? @ -None Did you discuss the management of the patient with other professionals (professionals i.e. Dr., PA, CLINICAL PROGRAMMER, lab, RT, psych nurse, social studies teacher, divorce lawyer, teacher, chemical instrumentation officer, hospice case manager)? Give summary @ -No Was smoking cessation discussed for >3mins.? @ -No Was critical care preformed (if so, how long)? @ -No Were there social determinants of health that impacted care today? How? (Homelessness, low income, unemployed, alcoholism, drug addiction, tr ansportation, low edu. Level, literacy, decrease access to med. care, long term, rehab)? @ -No Was there de-escalation of care discussed even if they declined (Discuss DNR or withdrawal of care, Hospice)? DNR status @ -No What co-morbidities impacted this encounter? (DM, HTN, Smoking, COPD, CAD, Cancer, CVA, ARF, Chemo, Hep., AIDS, mental health diagnosis, sleep apnea, morbid obesity)? @ -Diabetes Was patient admitted / discharged? Hospital course, mention meds given and route, prescriptions, significant lab abnormalities, going to OR and other pertinent info. @ -Discharge patient x-ray shows no acute fracture patient has a left foot contusion will be discharged in stable condition patient advised to closely monitor his foot as he is a known diabetic. Undiagnosed new problem with uncertain prognosis? @ -No Drug Therapy requiring intensive monitoring for toxicity (Heparin, Nitro, Insulin, Cardizem)? @ -No Were any procedures done? @ -No Diagnosis/symptom? @ -Left foot contusion] Acute, or Chronic, or Acute on Chronic? @ -Acute Uncomplicated (without systemic symptoms) or Complicated (systemic symptoms)? @ -Uncomplicated Side effects of treatment? @ -No Exacerbation, Progression, or Severe Exacerbation? @ -No Poses a threat to life or bodily function? How? (Chest pain, USA, OR, pneumonia, PE, COPD, DKA, ARF, appy, cholecystitis, CVA, Diverticulitis, Homicidal, Suicidal, threat to staff... and all critical care pts) @ -No Disposition Clinical Impression: Contusion of left foot Disposition: HOME SELF-CARE Condition: Stable Instructions (If sedation given, give patient instructions): Foot Contusion (ED) Additional Instructions: Please return to the Emergency Department if symptoms worsen or any other concerns. Is patient prescribed a controlled substance at d/c from ED?: No Referrals: Jasiel Acuna Jr, DO [Primary Care Provider] - 1-2 days Time of Disposition: 11:38
--- NOTE | 2022-11-06 10:51 | XR ---
EXAMINATION TYPE: XR foot complete LT DATE OF EXAM: 11/06/2022 CLINICAL HISTORY: pain TECHNIQUE: Frontal, lateral and oblique images of the left foot are obtained. COMPARISON: None. FINDINGS: There is no acute fracture/dislocation evident. The joint spaces appear within normal cannon its. The overlying soft tissue appears unremarkable. Vascular calcifications are noted. There is sandra dence of plantar calcaneal spur formation. IMPRESSION: There is no acute fracture or dislocation. ICD 10 NO FRACTURE, INITIAL EVALUATION
[2022-11-06 11:46] VITALS: BP 144/82; PULSE 89; RESP 16; TEMP 98
== END 2022-11-06 11:55 | disposition home or self-care (01) ==
LOC: EC 10:05
DX: S90.32XA Contusion of left foot, initial encounter (principal); E11.9 Type 2 diabetes mellitus without complications; I10 Essential (primary) hypertension; G47.30 Sleep apnea, unspecified; F12.90 Cannabis use, unspecified, uncomplicated; Z79.84 Long term (current) use of oral hypoglycemic drugs; Z79.4 Long term (current) use of insulin; Z79.899 Other long term (current) drug therapy; W20.8XXA Other cause of strike by thrown, projected or falling object, initial encounter
CPT/HCPCS: 99283

== ENCOUNTER 2022-12-20 20:12 | Emergency (ER) | payer MEDICARE ==
[2022-12-20 20:23] VITALS: RESP 18; TEMP 98.6
--- NOTE | 2022-12-20 21:19 | ED ---
Extremity Problem HPI - General Chief complaint: Extremity Injury, Lower Stated complaint: Foot Sore Time Seen by Provider: 12/20/22 20:36 Source: patient, RN notes reviewed Mode of arrival: ambulatory Limitations: no limitations - History of Present Illness Initial comments: This is a 57-year-old male who presents to the emergency department for a left foot wound. Patient was evaluated here a couple of months ago for left foot pain after dropping a log on his foot. He had normal x-rays at that time and had been doing well. States that he developed a scab over the foot. He did develop an infection and was on antibiotics for about 15 days. States that he has not been on antibiotics for about a week. When he went to take a shower today, the scab on his foot fell off, and he noticed a deep wound. States that he is concerned because he is a diabetic and does not want to lose his foot. He has neuropathy and denies any pain associated with this. Denies any fevers, chills, sore throat, cough, dyspnea, chest pain, palpitations, abdominal pain, nausea, vomiting, diarrhea, back pain, or headaches. - Related Data Home Medications Medication Instructions Recorded Confirmed Insulin NPH [humuLIN N] 61 units SQ BID-W/MEALS 08/13/15 02/21/22 Insulin Regular [humuLIN R] See Protocol SQ ACHS PRN 08/28/15 02/21/22 HYDROcodone/APAP 10-325MG [[place] 1 tab PO DIRECTED PRN 12/07/18 02/21/22 10-325] Losartan Potassium [Cozaar] 25 mg PO BID 02/17/22 02/21/22 Semaglutide [Ozempic] 1 mg SQ WE 02/17/22 02/21/22 Previous Rx's Medication Instructions Recorded Omeprazole 40 mg PO DAILY #90 capsule. 12/12/18 Cephalexin [Keflex] 500 mg PO Q6HR 10 Days #40 cap 12/20/22 Sulfamethox-Tmp 800-160Mg [Bactrim 1 tab PO Q12HR 10 Days #20 tab 12/20/22 DS 800-160 mg] Allergies Allergy/AdvReac Type Severity Reaction Status Date / Time No Known Allergies Allergy Verified 11/06/22 10:22 Review of Systems ROS Statement: Those systems with pertinent positive or pertinent negative responses have been documented in the HPI. ROS Other: All systems not noted in ROS Statement are negative. Past Medical History Past Medical History: Diabetes Mellitus, GERD/Reflux, Hypertension, Musculoskeletal Disorder, Sleep Apnea/CPAP/BIPAP Additional Past Medical History / Comment(s): neuropathy bilateral lower legs and hands, herniated lumbar discs, history of multiple bone fractures, uses CPAP, occasional swelling lower legs, restless leg, positive cologard History of Any Multi-Drug Resistant Organisms: None Reported Past Surgical History: Bariatric Surgery, Hernia Repair, Orthopedic Surgery Additional Past Surgical History / Comment(s): umbilical hernia repair w/mesh, right carpal tunnel repair, arthroscopy R knee, sleeve gastrectomy 11/30/15 Past Anesthesia/Blood Transfusion Reactions: No Reported Reaction Past Psychological History: No Psychological Hx Reported Smoking Status: Never smoker Past Alcohol Use History: None Reported Past Drug Use History: Marijuana - Past Family History Father Additional Family Medical History / Comment(s): Heart problems Mother Family Medical History: Diabetes Mellitus Additional Family Medical History / Comment(s): from foot infection General Exam Limitations: no limitations General appearance: alert, in no apparent distress Head exam: Present: atraumatic, normocephalic, normal inspection Respiratory exam: Present: normal lung sounds bilaterally. Absent: respiratory distress, wheezes, rales, rhonchi, stridor Cardiovascular Exam: Present: regular rate, normal rhythm, normal heart sounds. Absent: systolic murmur, diastolic murmur, rubs, gallop, clicks Extremities exam: Present: other (3x1 cm wound to the dorsal aspect of the right forefoot measuring 1 cm deep with visible fibrinous tissue.) Neurological exam: Present: alert, oriented X3, CN II-XII intact Psychiatric exam: Present: normal affect, normal mood Course Vital Signs 12/20/22 12/20/22 12/20/22 20:19 21:22 22:46 Temperature 98.6 F Pulse Rate 94 80 80 Respiratory 18 18 18 Rate Blood Pressure 157/82 156/80 155/80 O2 Sat by Pulse 97 100 99 Oximetry Medical Decision Making - Medical Decision Making This is a 57-year-old male who presents to the emergency department for a right foot wound. Was pt. sent in by a medical professional or institution? @ -No Did you speak to anyone other than the patient for history? @ -No Did you review nursing and triage notes? @ -Yes, and I agree, it is accurate with regards to the patient's symptoms. Were old charts reviewed? @ -No Differential Diagnosis? @ -Differential Foot Wound: Diabetic ulcer, burn, cellulitis, abscess, this is not meant to be an all-inclusive list. EKG interpreted by me (3pts min.)? @ -Not obtained X-rays interpreted by me (1pt min.)? @ -X-ray of the right foot obtained. My interpretation identifies no evidence of subcutaneous gas formation. CT interpreted by me (1pt min.)? @ -Not obtained U/S interpreted by me (1pt. min.)? @ -Not obtained What testing was considered but not performed? (CT, X-rays, U/S, labs)? Why? @ -None What meds were considered but not given? Why? @ -None Did you discuss the management of the patient with other professionals? @ -No Did you reconcile home meds? @ -No Was smoking cessation discussed for >3mins.? @ -No Was critical care preformed (if so, how long)? @ -No Were there social determinants of health that impacted care today? How? (Homelessness, low income, unemployed, alcoholism, drug addiction, transportation, low edu. Level, literacy, decrease access to med. care, senior living, rehab)? @ -No Was there de-escalation of care discussed even if they declined? (Discuss DNR or withdrawal of care, Hospice)? @ -No What co-morbidities impacted this encounter? (DM, HTN, Smoking, COPD, CAD, Cancer, CVA, Hep., AIDS, mental health diagnosis, sleep apnea, morbid obesity)? @ -DM, neuropathy Was patient admitted / discharged? @ -Discharged. Lab work does reveal a mild elevation in lactic acid and inflammatory markers. X-rays of the right foot reveals no acute process. The wound itself does have fibrinous tissue and the surrounding erythema is not very extensive. At this point, the patient can be started on a course of outpatient antibiotics. Prescription for Bactrim and Keflex provided with dosing instructions reviewed. He was given information for follow-up at [facility]. He is instructed to contact them first thing in the morning for a follow-up appointment and ongoing care of his diabetic wound. His wound was bandaged accordingly prior to discharge. Strict return parameters were discussed. Wound care instructions reviewed. Undiagnosed new problem with uncertain prognosis? @ -None Drug Therapy requiring intensive monitoring for toxicity (Heparin, Nitro, Insulin, Cardizem)? @ -None Were any procedures done? @ -None Diagnosis/symptom? @ -Diabetic ulcer, cellulitis Acute, or Chronic, or Acute on Chronic? @ -Acute Uncomplicated (without systemic symptoms) or Complicated (systemic symptoms)? @ -Uncomplicated Side effects of treatment? @ -None Exacerbation, Progression, or Severe Exacerbation] @ -Not applicable Poses a threat to life or bodily function? @ -No Return precautions reviewed in depth, the patient is instructed to return to the emergency department with any new, worsening, or concerning symptoms. Patient verbalized understanding. This case was discussed in detail with the attending ED physician, Dr. Gutierrez. Presentation, findings, and treatment plan discussed in detail as well. - Lab Data Result diagrams: 12/20/22 21:08 12/20/22 21:08 Lab Results 12/20/22 12/20/22 12/20/22 Range/Units 21:08 21:08 21:08 WBC 10.2 (3.8-10.6) k/uL RBC 4.44 (4.30-5.90) m/uL Hgb 13.4 (13.0-17.5) gm/dL Hct 39.7 (39.0-53.0) % MCV 89.4 (80.0-100.0) fL MCH 30.2 (25.0-35.0) pg MCHC 33.8 (31.0-37.0) g/dL RDW 13.3 (11.5-15.5) % Plt Count 293 (150-450) k/uL MPV 7.2 Neutrophils % 67 % Lymphocytes % 24 % Monocytes % 4 % Eosinophils % 2 % Basophils % 1 % Neutrophils # 6.8 (1.3-7.7) k/uL Lymphocytes # 2.5 (1.0-4.8) k/uL Monocytes # 0.4 (0-1.0) k/uL Eosinophils # 0.3 (0-0.7) k/uL Basophils # 0.1 (0-0.2) k/uL Sodium 139 (137-145) mmol/L Potassium 4.1 (3.5-5.1) mmol/L Chloride 100 (98-107) mmol/L Carbon Dioxide 25 (22-30) mmol/L Anion Gap 14 mmol/L BUN 25 H (9-20) mg/dL Creatinine 1.05 (0.66-1.25) mg/dL Est GFR (CKD-EPI)AfAm >90 (>60 ml/min/1.73 sqM) Est GFR (CKD-EPI)NonAf 80 (>60 ml/min/1.73 sqM) Glucose 168 H (74-99) mg/dL Lactic Ac Sepsis Rflx Plasma Lactic Acid Dieter 2.2 H* (0.7-2.0) mmol/L Calcium 9.7 (8.4-10.2) mg/dL Total Bilirubin 0.5 (0.2-1.3) mg/dL AST 27 (17-59) U/L ALT 26 (4-49) U/L Alkaline Phosphatase 112 (38-126) U/L C-Reactive Protein 2.3 H (<1.0) mg/dL Total Protein 8.8 H (6.3-8.2) g/dL Albumin 4.7 (3.5-5.0) g/dL /01/04 Range/Units 22:16 WBC (3.8-10.6) k/uL RBC (4.30-5.90) m/uL Hgb (13.0-17.5) gm/dL Hct (39.0-53.0) % MCV (80.0-100.0) fL MCH (25.0-35.0) pg MCHC (31.0-37.0) g/dL RDW (11.5-15.5) % Plt Count (150-450) k/uL MPV Neutrophils % % Lymphocytes % % Monocytes % % Eosinophils % % Basophils % % Neutrophils # (1.3-7.7) k/uL Lymphocytes # (1.0-4.8) k/uL Monocytes # (0-1.0) k/uL Eosinophils # (0-0.7) k/uL Basophils # (0-0.2) k/uL Sodium (137-145) mmol/L Potassium (3.5-5.1) mmol/L Chloride (98-107) mmol/L Carbon Dioxide (22-30) mmol/L Anion Gap mmol/L BUN (9-20) mg/dL Creatinine (0.66-1.25) mg/dL Est GFR (CKD-EPI)AfAm (>60 ml/min/1.73 sqM) Est GFR (CKD-EPI)NonAf (>60 ml/min/1.73 sqM) Glucose (74-99) mg/dL Lactic Ac Sepsis Rflx Y Plasma Lactic Acid Dieter (0.7-2.0) mmol/L Calcium (8.4-10.2) mg/dL Total Bilirubin (0.2-1.3) mg/dL AST (17-59) U/L ALT (4-49) U/L Alkaline Phosphatase (38-126) U/L C-Reactive Protein (<1.0) mg/dL Total Protein (6.3-8.2) g/dL Albumin (3.5-5.0) g/dL - Radiology Data Radiology results: report reviewed, image reviewed Disposition Clinical Impression: Diabetic ulcer of left foot, Cellulitis of left foot Disposition: HOME SELF-CARE Instructions (If sedation given, give patient instructions): Diabetic Foot Ulcers (ED) Additional Instructions: Return to the emergency department with any new, worsening, or concerning symptoms. Take both antibiotics as prescribed for 10 days. Contact the Wound Center as listed below first thing in the morning for a follow-up appointment. Let them know that you were seen in the emergency department for a diabetic ulcer to the left foot and need for follow-up wound care. Follow up with your primary care provider in 1-2 days. Prescriptions: Sulfamethox-Tmp 800-160Mg [Bactrim DS 800-160 mg] 1 tab PO Q12HR 10 Days #20 tab Cephalexin [Keflex] 500 mg PO Q6HR 10 Days #40 cap Is patient prescribed a controlled substance at d/c from ED?: No Referrals: Jasiel Acuna Jr, [Primary Care Provider] - 1-2 days [facility] [NON-STAFF] - 1-2 days
[2022-12-20 21:22] LABS: Basophils # (A) 0.1 k/uL (0-0.2); Basophils % (A) 1 %; Eosinophils # (A) 0.3 k/uL (0-0.7); Eosinophils % (A) 2 %; HCT 39.7 % (39.0-53.0); HGB 13.4 gm/dL (13.0-17.5); Lymphocytes # (A) 2.5 k/uL (1.0-4.8); Lymphocytes % (A) 24 %; MCH 30.2 pg (25.0-35.0); MCHC 33.8 g/dL (31.0-37.0); MCV 89.4 fL (80.0-100.0); Mean Platelet Volume 7.2; Monocytes # (A) 0.4 k/uL (0-1.0); Monocytes % (A) 4 %; Neutrophils # (A) 6.8 k/uL (1.3-7.7); Neutrophils % (A) 67 %; Platelet Count 293 k/uL (150-450); RBC 4.44 m/uL (4.30-5.90); RDW 13.3 % (11.5-15.5); WBC 10.2 k/uL (3.8-10.6)
--- NOTE | 2022-12-20 21:30 | XR ---
EXAMINATION TYPE: XR foot complete LT DATE OF EXAM: 12/20/2022 9:17 PM INDICATION: Patient age:Male; 57 years old; Reason for study: Wound on top of foot; COMPARISON: 11/06/2022 TECHNIQUE: The left foot was examined in the AP, oblique, and lateral projections. FINDINGS: No evidence of any acute osseous pathology. No evidence of soft tissue swelling. Joints are preserve d. Calcaneal plantar spurring is present. Atherosclerosis of the arterial vasculature. Soft tissue sw elling with wound on the dorsal aspect of foot. No evidence for osseous erosion. IMPRESSION: 1. Dorsal soft tissue wound without evidence for osseous erosion to suggest osteomyelitis. 2. No evidence of acute fracture.
[2022-12-20 21:34] LABS: ALT 26 U/L (4-49); AST 27 U/L (17-59); African American GFR (CKD) >90 (>60 ml/min/1.73 sqM); Albumin 4.7 g/dL (3.5-5.0); Alkaline Phosphatase 112 U/L (38-126); Anion Gap 14 mmol/L; Blood Urea Nitrogen 25 mg/dL (9-20); Calcium 9.7 mg/dL (8.4-10.2); Carbon Dioxide 25 mmol/L (22-30); Chloride 100 mmol/L (98-107); Glucose 168 mg/dL (74-99); Non-African American GFR(CKD) 80 (>60 ml/min/1.73 sqM); Potassium 4.1 mmol/L (3.5-5.1); Sodium 139 mmol/L (137-145); Total Bilirubin 0.5 mg/dL (0.2-1.3); Total Protein 8.8 g/dL (6.3-8.2)
[2022-12-20 22:15] LABS: C Reactive Protein 2.3 mg/dL (<1.0)
[2022-12-20] MEDS ORDERED: CEPHALEXIN 500MG STARTER PACK 4 CAP BTL PO STA (22:24)
[2022-12-20] MEDS ORDERED: SULFAMETH-TMP DS STARTER PACK 2 TAB BTL PO STA (22:24)
[2022-12-20 22:46] VITALS: PULSE 80
[2022-12-20 22:47] VITALS: BP 155/80
== END 2022-12-20 22:56 | disposition home or self-care (01) ==
LOC: EC 20:12
DX: E11.621 Type 2 diabetes mellitus with foot ulcer (principal); L03.116 Cellulitis of left lower limb; E11.9 Type 2 diabetes mellitus without complications; I10 Essential (primary) hypertension; F12.90 Cannabis use, unspecified, uncomplicated; Z79.4 Long term (current) use of insulin; Z79.899 Other long term (current) drug therapy
CPT/HCPCS: 36415; 80053; 83605; 85025; 86140; 87070; 87205; 99284

== ENCOUNTER → 2024-01-25 | Outpatient (CLI) | payer MEDICARE ==
--- NOTE | 2024-01-25 11:29 | US ---
EXAMINATION TYPE: US arterial LE single level DATE OF EXAM: 01/25/2024 8:58 AM CLINICAL INDICATION: Male, 58 years old with history of E11.59 TYPE 2 DIABETES; Wound on right guzmán f or 1 week, pain in his calfs when walking History of: Smoker: n Hypertension: y Diabetic: y Hyperlipidemia: n TIA/CVA: n Previous Vascular Surgery: n CAD: n [place]: n Vascular Ulcers: n Claudication: y Gangrene: n Doppler Waveforms: Right: Multiphasic Left: Multiphasic Right Brachial Pressure: 181 Left Brachial Pressure: 170 Ankle-Brachial Indices: Right: CNO - could not occlude Left: CNO - could not occlude (Vessel hardening > 1.4; Normal 0.9 - 1.4, Moderate 0.7 - 0.9, Severe 0.5-0.7) Toe Brachial Indices: Right: 0.8 Left: 0.9 IMPRESSION: Normal TBI bilaterally. See above.
== END | disposition home or self-care (01) ==
LOC: RADUSWWP 08:38
PROVIDERS: ATTEND Family Medicine
DX: E11.59 Type 2 diabetes mellitus with other circulatory complications
CPT/HCPCS: 93922

== ENCOUNTER → 2024-06-05 | Outpatient (CLI) | payer MEDICARE ==
[2024-06-05 08:41] LABS: African American GFR (CKD) >90 (>60 ml/min/1.73 sqM); Blood Urea Nitrogen 23 mg/dL (9-20); Non-African American GFR(CKD) >90 (>60 ml/min/1.73 sqM)
--- NOTE | 2024-06-05 11:25 | CT ---
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 Multiple thin slice sub-millimeter images were obtained before and after administration of contrast. 3-D reconstructed images and maximum intensity projection images were obtained. CT angio abd aorta w/Runoff CT Contrast: Contrast used:200 mL of Isovue 370 with IV Contrast, Oral contrast used: None CT DLP: 5279.2 mGycm, Automated exposure control for dose reduction was used. FINDINGS: Poor bolus timing limits evaluation. CTA Abdomen and pelvis: The abdominal aorta does not demonstrate aneurysmal dilatation. Atherosclero tic plaquing is identified within the abdominal aorta. The origins of the superior mesenteric artery , renal arteries, inferior mesenteric artery, and celiac axis are patent. The iliac vessels are norm al in morphology suspected inferior mesenteric artery stent. The present which contrast beyond this l esion is poorly visualized due to bolus timing. CTA Lower extremities: Right: The common femoral and superficial femoral arteries are patent. The popliteal artery is patent . Anterior and posterior tibial arteries as well as the peroneal artery are patent. Severely limited evaluation of the legs due to significant calcification. Left: The common femoral and superficial femoral arteries are patent. The popliteal artery is patent. Anterior and posterior tibial arteries as well as the peroneal artery are patent. Severely limited e valuation of the legs due to significant calcification. LOWER CHEST: No evidence of focal consolidation, pneumothorax or pleural effusion. Gynecomastia segura es of the breasts. LIVER: Diffusely hypoattenuating parenchyma. GALLBLADDER AND BILE DUCTS: Unremarkable. PANCREAS: Uncinate process 21 mm masslike area previously 18 mm in 10/02/2019 SPLEEN: Small splenule is present. ADRENAL GLANDS: Unremarkable. KIDNEYS AND URETERS: No evidence of hydronephrosis or renal calculus. The ureters are unremarkable. Not certain bilateral 2 mm calculi. PELVIS BLADDER: Unremarkable REPRODUCTIVE: Unremarkable. ABDOMEN & PELVIS STOMACH AND BOWEL: No evidence of bowel obstruction. Postsurgical changes of gastric stomach with sut ure identified in small hiatal hernia. PERITONEUM: No evidence of pneumoperitoneum or free fluid. VASCULATURE: No evidence of aortic aneurysm. MUSCULOSKELETAL: No acute osseous abnormalities LYMPH NODES: No gross evidence for lymphadenopathy. SOFT TISSUE/ABDOMINAL WALL: Subcutaneous panniculitis changes of the abdominal skin. IMPRESSION: 1. Suboptimal bolus timing limits evaluation. There is moderate to severe atherosclerosis of the art erial vasculature. The vessels of the legs bilaterally are significantly calcified limiting their andres luation. Consider catheter angiogram for evaluation of the legs. No evidence for intra-abdominal or o cclusion, aneurysm or dissection. The vasculature extending to the knees is patent. 2. Suspected inferior mesenteric artery stent is poorly evaluated given contrast timing. 3. Masslike area measuring 12 mm in the uncinate process. Further evaluation with MRI with IV contra st recommended. Previously 18 mm on 10/03/2019. 4. Hepatic steatosis. 5. Bilateral gynecomastia. 6. Colonic diverticulosis. 7. Post surgical changes gastric lumen with small hiatal hernia. 8. Bilateral renal cortical/nonobstructing 2 mm opacifications. [facility], , 06/05/2024 11:22 AM
== END | disposition home or self-care (01) ==
LOC: RADCTMAIN 08:02
PROVIDERS: ATTEND Surgery
DX: I70.213 Atherosclerosis of native arteries of extremities with intermittent claudication, bilateral legs (principal); K76.89 Other specified diseases of liver; N62 Hypertrophy of breast; K57.30 Diverticulosis of large intestine without perforation or abscess without bleeding; K44.9 Diaphragmatic hernia without obstruction or gangrene; I70.0 Atherosclerosis of aorta; N28.89 Other specified disorders of kidney and ureter
CPT/HCPCS: 82565; 84520; 75635; 36415; Q9967